=== PATIENT | female | born 1955 | race Caucasian/White ===

== ENCOUNTER → 2019-10-05 | Outpatient (CLI) | payer OTHER ==
[~2019-10-05] VITALS: Ht 162.6 cm; Wt 99.8 kg
[~2019-10-05] MED LIST: GLIPIZIDE ER PO; LISINOPRIL PO; LYRICA150 MG PO; MELOXICAM15 MG PO; TOPROL XL25 MG PO
[2019-10-05 08:48] VITALS: BP 127/69
--- NOTE | 2019-10-05 09:18 | NUR ---
Pain Clinic Assessment: 1. History of Osteoarthritis: Right Lower Extremity History of Rheumatoid Arthritis: Not Applicable 2. Height: 5 ft. 4 in. 162.6 cm. Weight: 220.0 lb. oz. 99.792 kg. Patient's BMI: 37.7 3. Vital Signs: BP: 127/69 Pulse: 64 Resp: 16 Temp: 02 Sat: 97 ECG Mon: 4. Pain Intensity: 6 5. Fall Risk: Dizziness: N Needs help standing or walking: Y Fallen in the last 3 months: N Fall risk comments: 6. Patient on Blood Thinner: None 7. History of Hypertension: Y 8. Opioid Therapy greater than 6 weeks: N Opiate Contract Signed: 9. Risk Assessment Tool Provided: 10. Functional Assessment Tool: 11. Recreational Drug Use: Never Drug Type: Tobacco Use: Never Smoker Tobacco Type: Amount or Packs/day: How Many Years: Alcohol Use: No Frequency: Quant:
--- NOTE | 2019-10-11 16:27 | HPC ---
[address] [address] PAIN MANAGEMENT CONSULTATION Name: DAPHNIE WELLER Room #: REG [facility] Jesus#: [id number] Admission: 10/05/19 Attend Phys: James Kennedy DO Discharge: Date of : 57 Report #: [id number] THIS REPORT FOR: //name// CC: Costa Yarbrough MD DATE OF SERVICE: 10/05/2019 CHIEF COMPLAINT: Low back pain, bilateral lower extremity pain with paresthesias. HISTORY OF PRESENT ILLNESS: As you know, the patient is a pleasant 64-year-old female referred to our clinic by her neurosurgeon, Dr. Brendan Yarbrough to trial an epidural injection under fluoroscopic guidance. The patient does have a potential plans to undergo surgery, but they wish to trial more conservative treatment initially. She returns today in followup. She has been referred to our clinic today to discuss treatment options and to undergo lumbar epidural injection. She indicates pain has been present since 2015. She believes that began in January. She denies any specific injury or trauma that may have led to symptom occurrence. She was referred to Neurosurgery by her orthopedic surgeon after a total hip arthroplasty performed 06/2019 improved her gait, but did not improve her ongoing pain issues. She sought further evaluation through the orthopedic team who then referred the patient Neurosurgery. Neurosurgery has determined surgical options may be necessary, but she was then referred to our clinic to trial epidural injection initially to determine if she would be amenable to more conservative treatment options. The patient indicates today pain is continuous, describes the pain as tender, numbness and tingling. Places current pain score 6/10, daily average of 4-5/10, worst pain has been is 7-8/10. The patient states that twisting, bending, lying exacerbates symptoms, sitting down improves pain. She has been referred to our clinic to discuss the possibility of undergoing a lumbar epidural injection to address lumbar radicular symptoms. PAST MEDICAL HISTORY: 1. Diabetes mellitus type 2. 2. Hypertension. 3. Morbid obesity. 4. Osteoarthritis. PAST SURGICAL HISTORY: 1. Tonsillectomy. 2. Right total hip arthroplasty. 3. Back surgeries x 2. [facility] [address] [place] [address] PAIN MANAGEMENT CONSULTATION Name: DAPHNIE WELLER [id number] Admission: 10/05/19 Attend Phys: James Kennedy DO Discharge: Date of : 57 Report #: [id number] SOCIAL HISTORY: The patient denies tobacco, alcohol, IV or illicit drug use. She is a certified residential medication aide. She is working, not receiving workmen's compensation or is trying to obtain disability benefits. She is not in litigation in regards to pain. She is accompanied by a family friend present in room today. REVIEW OF SYSTEMS: Positive for frequent urination, nocturia, low back pain, bilateral lower extremity pain, osteoarthritis and hypertension. All other review of systems negative per 12-point review of systems, and those listed in history of present illness. Pain impact score 1870 indicating mild interference of daily activities secondary to pain. ALLERGIES: No known drug allergies. CURRENT MEDICATIONS: Metoprolol 25 mg twice a day, lisinopril 10 mg once a day, glipizide 5 mg once a day, meloxicam 15 mg once a day, pregabalin 150 mg b.i.d. IMAGING: MRI of the lumbar spine obtained 09/07/2019 shows changes at the L3-L4 level, L4-L5 level and L5-S1 level. PHYSICAL EXAMINATION: VITAL SIGNS: Blood pressure 127/69, pulse 64, respiratory rate 16 and unlabored. The patient is 97% on room air. Height 5 feet 4 inches tall, weight 220 pounds, BMI calculated 37.7. GENERAL: Well-developed, well-nourished, well-hydrated, morbidly obese 64-year-old female appearing stated age, pain is rated around 6/10. HEENT: Normocephalic, atraumatic. Pupils equal, round, reactive to light. Extraocular muscles are intact. Sclerae nonicteric without injection. NEUROLOGIC: Cranial nerves 2-12 grossly intact. Speech fluent. The patient deemed a good historian. LUNGS: Clear, no wheeze, rhonchi or rales. CARDIOVASCULAR: Regular. No appreciable gallop, no rub. ABDOMEN: Soft, nontender, obese. Normoactive bowel sounds. EXTREMITIES: Show no clubbing, no cyanosis, no edema. MUSCULOSKELETAL: Lower extremity strength appears symmetrical 5/5, intact to light touch from L1 through S2 dermatomes. Seated straight leg raising negative. Supine straight leg raising mildly positive, left greater than right. Ankle clonus negative. Babinski is negative. Muscle bulk and tone is symmetrical in comparing left lower extremity over right. Gait is normal, stance slightly forward flexed lumbar spine. ASSESSMENT: 1. Symptomatic lumbar radiculopathy. 2. Central canal stenosis of the lumbar spine. [facility] [address] [place] [address] PAIN MANAGEMENT CONSULTATION Name: DAPHNIE WELLER Room #: REG CLKatherine Lee#: [id number] Admission: 10/05/19 Attend Phys: James Kennedy DO Discharge: Date of : 57 Report #: [id number] 3. Displacement of lumbar intervertebral disk with radiculopathy. 4. Lumbosacral spondylosis with radiculopathy. 5. Foraminal stenosis of lumbar spine. 6. Degeneration of lumbar spine. 7. Chronic intractable pain. PLAN: 1. The patient has been referred to our clinic by her neurosurgeon to undergo a lumbar epidural injection under fluoroscopic guidance to address lumbar radicular symptoms. The patient is placing pain today at approximately 6/10. She has been advised of the risks and the benefits of a lumbar epidural injection. These risks include but are not necessarily limited to bleeding, bruising, infection, worsening pain, no relief of pain, also risk of temporary or permanent muscle weakness, temporary or permanent nerve damage, possible paralysis, post-dural puncture headache and . The patient states understood and wished to proceed. 2. For completeness sake, we did discuss other treatment options available for lumbar radiculopathy. The standard treatment options for lumbar radicular symptoms include physical therapy, stretching exercises and a concerted effort at weight loss. We discussed medication management utilizing neuropathic pain medications and low dose opioid if necessary for pain control. We discussed the epidural injection for which the patient was referred to our clinic. We also discussed spinal cord stimulator therapy and ultimately surgical decompression. The patient was agreeable to all treatment course, but did wish to continue with the requested lumbar epidural injection. 3. No medication changes made at today's visit. The patient will continue current medical therapy as previously prescribed. 4. We will see the patient back in followup visit on an as needed basis for next in the series of lumbar epidural injections. We have established the patient a tentative appointment in approximately 32 days to review the efficacy. 5. We wish to thank Dr. Yarbrough for the referral of this patient to our clinic. We will keep you apprised of response to treatment as we address lumbar radicular symptoms. Again, we wish to thank you for the opportunity to see this patient in consultation. PROCEDURE NOTE DESCRIPTION OF PROCEDURE: L4-L5 interlaminar epidural steroid injection under fluoroscopic guidance. This is the first procedure of the first series that the patient is undergoing. After obtaining written consent, the patient was taken back to the fluoroscopy suite, placed in a prone position with pillow under the abdomen to decrease lumbar lordosis. The skin overlying the lumbosacral area was then prepped and draped in aseptic fashion. The L4-L5 vertebral interspace was then identified [address] [address] PAIN MANAGEMENT CONSULTATION Name: DAPHNIE WELLER Room #: REG [facility]I Lee#: [id number] Admission: 10/05/19 Attend Phys: James Kennedy DO Discharge: Date of : 57 Report #: [id number] by AP fluoroscopy. The skin and subcutaneous tissue overlying the target site of injection was anesthetized with 3 mL 1% lidocaine. A 20 gauge 2.5 inch Tuohy needle was then advanced under fluoroscopic guidance towards the epidural space using a midline approach. The epidural space was identified using loss of resistance to air technique. After negative aspiration for heme or cerebrospinal fluid, a total of 1 mL of Omnipaque was injected. A lumbar epidurogram was confirmed using both AP and lateral fluoroscopy. After negative aspiration for heme or cerebrospinal fluid, 5 mL of a solution containing 2 mL 40 mg per mL, 80 mg total triamcinolone along with 3 mL lidocaine 1% was injected in increments. Contrast spread was noted posterior epidural space. The needle was then retracted approximately half way and needle tract flushed with 1 mL of 1% lidocaine. Needle was then removed. There were no apparent sensory or motor deficits in the lower extremity following the procedure. A sterile bandage was placed over the injection site. The heart rate, pulse, oximetry and blood pressure were continuously monitored after the procedure. There were no complications. The patient tolerated the procedure well and was carefully escorted to the recovery room in stable condition. There were no apparent complications. After meeting discharge criteria, the patient was then discharged home. <ELECTRONICALLY SIGNED> By: James Kennedy DO 10/11/19 1627 [id number] James Kennedy DO /nt
== END | disposition home or self-care (01) ==
LOC: PAIN 07:00
DX: M51.16 Intervertebral disc disorders with radiculopathy, lumbar region (principal); M48.061 Spinal stenosis, lumbar region without neurogenic claudication; M47.27 Other spondylosis with radiculopathy, lumbosacral region; M99.73 Connective tissue and disc stenosis of intervertebral foramina of lumbar region; G89.29 Other chronic pain; Z79.899 Other long term (current) drug therapy

== ENCOUNTER → 2019-11-01 | Outpatient (CLI) | payer OTHER ==
[~2019-11-01] VITALS: Ht 162.6 cm; Wt 98.5 kg
[2019-11-01 08:48] VITALS: BP 119/72
--- NOTE | 2019-11-01 09:05 | NUR ---
Pain Clinic Assessment: 1. History of Osteoarthritis: Right Lower Extremity History of Rheumatoid Arthritis: Not Applicable 2. Height: 5 ft. 4 in. 162.6 cm. Weight: 217.2 lb. oz. 98.521 kg. Patient's BMI: 37.3 3. Vital Signs: BP: 119/72 Pulse: 63 Resp: 16 Temp: 02 Sat: 96 ECG Mon: 4. Pain Intensity: 5-6 5. Fall Risk: Dizziness: N Needs help standing or walking: Y Fallen in the last 3 months: N Fall risk comments: 6. Patient on Blood Thinner: None 7. History of Hypertension: Y 8. Opioid Therapy greater than 6 weeks: N Opiate Contract Signed: 9. Risk Assessment Tool Provided: 10. Functional Assessment Tool: 11. Recreational Drug Use: Never Drug Type: Tobacco Use: Never Smoker Tobacco Type: Amount or Packs/day: How Many Years: Alcohol Use: No Frequency: Quant:
--- NOTE | 2019-11-01 12:14 | HPC ---
[facility] [place] [address] [place] [address] PAIN MANAGEMENT CONSULTATION Name: DAPHNIE WELLER Room #: REG [facility]IE Jesus#: [id number] Admission: 11/01/19 Attend Phys: James Kennedy DO Discharge: Date of : 57 Report #: [id number] THIS REPORT FOR: //name// CC: Costa Yarbrough MD DATE OF SERVICE: 11/01/2019 CHIEF COMPLAINT: Low back pain, bilateral lower extremity pain and paresthesias. HISTORY OF PRESENT ILLNESS: As you know, the patient is a very pleasant 64-year-old female referred to our service by her neurosurgeon, Dr. Brendan Yarbrough to trial epidural injections under fluoroscopic guidance. The patient underwent a lumbar epidural injection under fluoroscopic guidance on 11/04/2019. She reports improvement in symptoms with that epidural injection of 75%. Unfortunately, her symptoms have begun to return over the past week. She made today's appointment to undergo next in the series of epidural injections. She has tentatively scheduled surgery for December [address] Yarbrough though they are hopeful that the epidural injections will provide good and prolonged benefit. She returns today in followup visit to undergo next in the series of epidural injections to build on success of previous intervention. ALLERGIES: No known drug allergies. CURRENT MEDICATIONS: Pregabalin, meloxicam, glipizide, lisinopril and metoprolol. SOCIAL HISTORY: The patient denies tobacco, alcohol, IV or illicit drug use. She is unaccompanied at today's visit. IMAGING: No new imaging available. PHYSICAL EXAMINATION: VITAL SIGNS: Blood pressure 119/72, pulse 63, respiratory rate 16 and unlabored. The patient is 96% on room air. Height 5 feet 4 inches tall, weight 217.2 pounds, BMI calculated 37.3. GENERAL: Well-developed, well-nourished, well-hydrated 64-year-old female appearing stated age, placing current pain score around 5-6/10. HEENT: Normocephalic, atraumatic. Pupils equal, round, reactive to light. EXTREMITIES: Show no clubbing, no cyanosis, and no edema. MUSCULOSKELETAL: Lower extremity strength remains symmetrical 5/5. Seated straight-leg raising is mildly positive on the left. Supine straight-leg raising positive on the left. German's test is negative. Modified Gaenslen's positive for axial low back pain. Gait appears slightly antalgic favoring left [facility] [address] [place] [address] PAIN MANAGEMENT CONSULTATION Name: DAPHNIE WELLER Room #: REG [facility]#: [id number] Admission: 11/01/19 Attend Phys: James Kennedy DO Discharge: Date of : 57 Report #: [id number] lower extremity over right. ASSESSMENT: 1. Symptomatic lumbar radiculopathy. 2. Spinal stenosis of the lumbar spine. 3. Displacement of lumbar intervertebral disk with radiculopathy. 4. Lumbosacral spondylosis with radiculopathy. 5. Foraminal stenosis of the lumbar spine. 6. Lumbar degeneration. 7. Chronic intractable pain. PLAN: 1. The patient returns today in followup visit having noted approximately 75% improvement in overall pain with previous lumbar epidural injection. She returns today in followup visit to undergo next in the series of epidural injections to address recurrent symptoms. She now places at . She denies new injury, trauma or any changes in medical history since our last visit. She is not on any anticoagulants, which would preclude us from having the patient undergo the procedure today. She has been advised risks and benefits of the procedure, states understood and wished to proceed. 2. No medication changes made at today's visit. The patient will continue current medical therapy as prior prescribed. 3. The patient will return to our clinic on an as needed basis for possible next in the series of epidural injections under fluoroscopic guidance. DESCRIPTION OF PROCEDURE: L4-L5 interlaminar epidural steroid injection under fluoroscopic guidance. This is the second procedure of the first series that the patient is undergoing. After obtaining written consent, the patient was taken back to the fluoroscopy suite, placed in a prone position with pillow under the abdomen to decrease lumbar lordosis. The skin overlying the lumbosacral area was then prepped and draped in aseptic fashion. The L4-L5 vertebral interspace was then identified by AP fluoroscopy. The skin and subcutaneous tissue overlying the target site of injection was anesthetized with 3 mL 1% lidocaine. A 20-gauge 4-1/2 inch Tuohy needle was then advanced under fluoroscopic guidance towards the epidural space using a paramedian approach. The epidural space was identified using loss of resistance to air technique. After negative aspiration for heme or cerebrospinal fluid, a total of 1 mL of Omnipaque was injected. A lumbar epidurogram was confirmed using both AP and lateral fluoroscopy. After negative aspiration for heme or cerebrospinal fluid, 5 mL of solution containing 2 mL of 40 mg per mL, 80 mg total triamcinolone along with 3 mL lidocaine 1% was injected in increments. Contrast spread was noted post epidural space. The needle was then retracted approximately half way and needle tract flushed with [address] [address] PAIN MANAGEMENT CONSULTATION Name: DAPHNIE WELLER [id number] Admission: 11/01/19 Attend Phys: James Kennedy DO Discharge: Date of : 57 Report #: [id number] mL of 1% lidocaine. Needle was then removed. There were no apparent sensory or motor deficits in the lower extremity following the procedure. A sterile bandage was placed over the injection site. The heart rate, pulse, oximetry and blood pressure were continuously monitored after the procedure. There were no complications. The patient tolerated the procedure well and was carefully escorted to the recovery room in stable condition. There were no apparent complications. After meeting discharge criteria, the patient was then discharged home. <ELECTRONICALLY SIGNED> By: James Kennedy DO 11/01/19 1214 [id number] James Kennedy DO /nt
== END | disposition home or self-care (01) ==
LOC: PAIN 07:51
DX: M51.16 Intervertebral disc disorders with radiculopathy, lumbar region (principal); M48.061 Spinal stenosis, lumbar region without neurogenic claudication; M47.27 Other spondylosis with radiculopathy, lumbosacral region; G89.29 Other chronic pain; Z98.890 Other specified postprocedural states; Z79.899 Other long term (current) drug therapy